=== PATIENT | female | born 1990 | race Caucasian/White ===

== ENCOUNTER 2016-12-18 03:35 | Emergency (ER) | payer SELFPAY ==
[2016-12-18 03:45] VITALS: RESP 16
[2016-12-18] MEDS ORDERED: HYDROCODONE/APAP 5/325 TAB PO ONE (04:07)
[2016-12-18] MEDS ORDERED: CARBAMIDE PEROXIDE 15 ML BOTTLE LEFTEAR ONE (04:07)
[2016-12-18] MEDS ORDERED: HYDROCOD/APAP 5/325 PREPACK#6 BTL TAKEHOME ONE (05:33)
[2016-12-18] MEDS ORDERED: ONDANSETRON 4MG PREPACK#2 BTL TAKEHOME ONE (05:33)
[2016-12-18] MEDS ORDERED: AMOXICILLIN 250 MG PREPACK#4 BTL TAKEHOME ONE (05:33)
--- NOTE | 2016-12-18 05:41 | EDPHY ---
H & P Time Seen by Provider: 12/18/16 03:58 HPI/ROS: CC: left ear pain HPI: This 26-year-old female with past medical history of anxiety, depression, OCD currently untreated presents to emergency department today with severe 10/ 10 left ear pain that started a few days ago. She states the Tylenol and ibuprofen is no longer working. She denies fever, sore throat, or recent illness. She had multiple teeth pulled in the spring without complications. She states she currently does not have a primary care provider and has been unable to fill out the appropriate forms to get back into the system because of her psychiatric issues. REVIEW OF SYSTEMS: Constitutional: No fever, no chills. Eyes: No discharge. ENT: No sore throat. Respiratory: No cough, no shortness of breath. Cardiac: No chest pain, no palpitations. Gastrointestinal: No abdominal pain, no vomiting. Genitourinary: No hematuria. Musculoskeletal: No back pain. Skin: No rashes. Neurological: No headache. Past Medical/Surgical History: Past medical history includes anxiety, depression, obsessive-compulsive disorder Past surgical history includes teeth extraction Family history includes colon cancer NKDA Medications - no Rx medications at this time Social History: 1/2 - 1 pack of cigarettes per week; no ETOH; Daily Marijuana use Works at a [employer] Smoking Status: Current every day smoker Physical Exam: General Appearance: Alert, severe distress, wailing loudly Eyes: Pupils equal and round no pallor or injection. ENT, Mouth: Mucous membranes are moist, no pharyngeal erythema or exudate. Multiple missing teeth. Left TM not visualized initially due to cerumen impaction. After irrigation the visible portion of the Left TM was dark and dull. No sign of mastoiditis. Respiratory: There are no retractions, lungs are clear to auscultation. Cardiovascular: Regular rate and rhythm. Gastrointestinal: Abdomen is soft and nontender, no masses, bowel sounds normal. Neurological: Awake and alert, sensory and motor exams grossly normal. Skin: Warm and dry, no rashes. Musculoskeletal: Neck is supple nontender. Extremities are symmetrical, full range of motion. Psychiatric: Patient is oriented X 3, there is no agitation. DIFFERENTIAL DIAGNOSIS: After history and physical exam differential diagnosis was considered for but not limited to: otalgia, otitis media, otitis externa Constitutional: Initial Vital Signs Temperature (C) 97.7 F 12/18/16 03:42 Heart Rate 70 12/18/16 03:42 Respiratory Rate 16 12/18/16 03:42 Blood Pressure 110/69 12/18/16 03:42 O2 Sat (%) 97 12/18/16 03:42 O2 Delivery Mode Room Air Allergies/Adverse Reactions: No Known Allergies Allergy (Unverified 12/18/16 03:41) Home Medications: Medication Instructions Recorded AMOXICILLIN TRIHYDRATE [Amoxil] 875 mg PO BID #20 tablet 12/18/16 Medical Decision Making Procedures: Procedure: Cerumen removal. After a physical exam was performed cerumen needed to be removed from the patient's ear canal. The indication of the procedure was cerumen impaction and inability to complete the ear exam. The procedure was performed with an ear curette and irrigation after Debrox solution placed in left EAC. The patient tolerated the procedure well. The procedure was performed by myself and the loader technician. ED Course/Re-evaluation: The patient was seen and examined. Vital signs reviewed. The patient was wailing in pain which seemed out of proportion to the situation. This may be due to her untreated psychiatric issues but initially drug use was also suspected. Her urine drug screen was positive for only marijuana (opiates were given in the ED prior to the urine sample collection). The patient was unsure if she was but her urine test was negative. The patient's left external auditory canal was occluded with cerumen. The cerumen was initially unable to be removed using an ear curette. After Debrox solution was placed in the external auditory canal, the loader technician and myself irrigated the ear. Mode was then visualized of the left tympanic membrane was dull and dark. The patient was started on amoxicillin. She was given a take-home pack of Chester as well as Zofran due to the nausea induced by irrigation. She was referred to the [facility] for follow-up on both her ear discomfort and hopefully they will be able to get her back into the mental health system as well. She may return to the emergency room if she has any further problems or concerns. Her pain was much improved at discharge. - Data Points Laboratory Results: 12/18/16 12/18/16 05:15 05:15 Beta HCG, Qual NEGATIVE Urine Opiates Screen NON-NEGATIVE H (NEGATIVE) Urine Barbiturates NEGATIVE (NEGATIVE) Ur Phencyclidine Scrn NEGATIVE (NEGATIVE) Ur Amphetamine Screen NEGATIVE (NEGATIVE) U Benzodiazepines Scrn NEGATIVE (NEGATIVE) Urine Cocaine Screen NEGATIVE (NEGATIVE) U Marijuana (THC) Screen NON-NEGATIVE H (NEGATIVE) Medications Given: Discontinued Medications Hydrocodone Bitart/Acetaminophen (Chester 5/325) 2 tab PO EDNOW ONE Stop: 12/18/16 04:08 Last Admin: 12/18/16 04:20 Dose: 2 tab Carbamide Peroxide (Debrox) 5 drop LEFTEAR EDNOW ONE Stop: 12/18/16 04:08 Last Admin: 12/18/16 04:21 Dose: 2 drops Departure - Departure Disposition: Home, Routine, Self-Care Clinical Impression: Acute otitis media Qualifiers: Laterality: left Recurrence: not specified as recurrent Spontaneous tympanic membrane rupture: without spontaneous rupture Condition: Good Instructions: Hydrocodone/Acetaminophen (By mouth), Amoxicillin (By mouth), Ondansetron (By mouth), Cerumen Impaction (ED), Otitis Media (ED), Earache (ED) Additional Instructions: Take the antibiotic as directed. You may take ibuprofen for pain in addition to the Chester given in the ER. Follow up with a primary care provider as needed for your ear pain but you should also get back into the mental health system. The [facility] may be able to help you with the forms you need to fill out. Return to the ER if any further problems or concerns. Referrals: Patient,NotPresent [Primary Care Provider] - As per Instructions [facility],. [Clinic] - As per Instructions (Establish care with a primary care provider and follow up in the next 1 -2 weeks.) Stand Alone Forms: Work Excuse Prescriptions: AMOXICILLIN TRIHYDRATE [Amoxil] 875 mg PO BID #20 tablet
[2016-12-18 05:49] VITALS: BP 115/63; PULSE 75; TEMP 97.9; O2SAT 95
== END 2016-12-18 06:17 | disposition home or self-care (01) ==
LOC: CED 03:35
PROC: F09Z3XZ Cerumen Management Treatment using Cerumen Management Equipment (ICD-10-PCS; principal; 2016-12-18)
DX: H66.92 Otitis media, unspecified, left ear (principal); H61.22 Impacted cerumen, left ear; F17.210 Nicotine dependence, cigarettes, uncomplicated
CPT/HCPCS: 80307-PO; 84703-PO